=== PATIENT | male | born 1970 | race Hispanic/Latino ===

== ENCOUNTER 2024-05-24 18:23 | Inpatient (IN) | payer SELFPAY ==
[~2024-05-24] VITALS: Ht 172.7 cm; Wt 101.8 kg
[2024-05-24 18:38] VITALS: O2SAT 95
[2024-05-24 19:10] LABS: BASOPHILS # (AUTO) 0.07 K/uL (0.00-0.20); BASOPHILS % (AUTO) 0.7 % (0.0-5.0); EOSINOPHILS % (AUTO) 3.1 % (0.0-8.0); HEMATOCRIT 38.9 % (42-54); IMMATURE GRANULOCYTE ABSOLUTE 0.04 K/uL (0-1); LYMPHOCYTES # (AUTO) 1.8 K/uL (1.0-4.8); LYMPHOCYTES % (AUTO) 18.3 % (21.0-51.0); MEAN CORPUSCULAR HEMOGLOBIN 29.4 pg (27.0-33.0); MEAN CORPUSCULAR HGB CONC 35.2 g/dL (32.0-36.0); MEAN CORPUSCULAR VOLUME 83.5 fL (79-99); MONOCYTES # (AUTO) 0.9 K/uL (0.1-1.0); MONOCYTES % (AUTO) 8.7 % (3.0-13.0); NEUTROPHILS # (AUTO) 6.8 K/uL (1.8-7.7); NEUTROPHILS % (AUTO) 68.8 % (40.0-77.0); PLATELET COUNT (AUTO) 228 K/uL (130-400); RED BLOOD CELL COUNT(AUTO) 4.66 MIL/uL (4.50-6.20); RED CELL DISTRIBUTION WIDTH 12.7 % (11.0-15.5); WHITE BLOOD COUNT (AUTO) 9.8 K/uL (4.8-10.8)
[2024-05-24] MEDS: 0.9%NACL 1000ML 1,000 ML IV ONE ×2 (19:23→20:26)
[2024-05-24 19:52] LABS: ALBUMIN 3.4 g/dL (3.5-5.0); BILIRUBIN,TOTAL 0.7 mg/dL (0.2-1.0); CREATININE 1.1 mg/dL (0.5-1.3); MAGNESIUM 1.7 mg/dL (1.80-2.40); TOTAL PROTEIN, SERUM 6.5 g/dL (6.0-8.3)
[2024-05-24 20:13] LABS: COVID19 (SARS ANTIGEN RAPID) PRESUMPTIVE NEGATIVE (NEGATIVE); INFLUENZA TYPE A Negative For Type A (NEGATIVE); INFLUENZA TYPE B Negative For Type B (NEGATIVE)
[2024-05-24] MEDS: KETOROLAC 30MG VIAL (30MG/ML) IVP ONE (20:14)
[2024-05-24 20:37] LABS: APPEARANCE,URINE CLEAR (CLEAR); BILIRUBIN,URINE NEGATIVE (NEGATIVE); COLOR,URINE YELLOW (YELLOW); GLUCOSE, URINE (UA) NEGATIVE (NEGATIVE); KETONES,URINE NEGATIVE (NEGATIVE); LEUKOCYTE ESTERASE ,URINE NEGATIVE Leu/uL (NEGATIVE); NITRATE,URINE NEGATIVE (NEGATIVE); PROTEIN,URINE 30 mg/dL (NEGATIVE); UROBILINOGEN,URINE 3 mg/dL (0.2-1.0)
[2024-05-24 20:45] LABS: ADD UA MICROSCOPIC YES
[2024-05-24 20:48] LABS: BACTERIA,URINE RARE /HPF (None Seen); MUCUS,URINE RARE LPF (None Seen); OTHER CASTS, URINE 1 /LPF (None Seen); SQUAMOUS EPITHELIAL CELL,UR RARE /HPF (0-2)
[2024-05-24] MEDS ORDERED: acetaMINOPHEN 650 MG SUPPOSITORY RC PRN (21:00)
[2024-05-24] MEDS ORDERED: DOCUSATE SODIUM 100 MG CAP PO PRN (21:00)
[2024-05-24] MEDS ORDERED: hydrALAZine 20MG/ML VIAL IV PRN (21:00)
[2024-05-24] MEDS ORDERED: TEMAZEPAM 15 MG CAPSULE PO PRN (21:00)
[2024-05-24] MEDS ORDERED: ONDANSETRON 4MG INJ IVP PRN (21:00)
[2024-05-24] MEDS ORDERED: acetaMINOPHEN 325 MG TAB PO PRN (21:00)
[2024-05-24] MEDS ORDERED: LACTULOSE 20 GM/30 ML UDCUP PO PRN (21:00)
[2024-05-24] MEDS: INSULIN HUMULIN R 100 UNIT/ML 3ML SQ SCH (21:00)
[2024-05-24 21:44] LABS: AMPHET/METH SCREEN,URINE POSITIVE (NEGATIVE); BARBITURATE SCREEN, URINE NEGATIVE (NEGATIVE); BENZODIAZEPINES SCREEN,URINE NEGATIVE (NEGATIVE); CANNABINOID SCREEN,URINE POSITIVE (NEGATIVE); COCAINE SCREEN,URINE NEGATIVE (NEGATIVE); OPIATE SCREEN,URINE NEGATIVE (NEGATIVE); PHENCYCLIDINE SCREEN,URINE NEGATIVE (NEGATIVE)
[2024-05-24] MEDS ORDERED: ALBUTEROL 0.083% 2.5 MG/3 ML INH IH PRN (22:00)
[2024-05-24] MEDS ORDERED: GUAIFENESIN-DM 200/20 MG 10 ML PO PRN (22:00)
[2024-05-24] MEDS ORDERED: IpraTROPium 0.5 MG/2.5 ML INH IH PRN (22:00)
[2024-05-24] MEDS ORDERED: DEXTROSE 50%-WATER 50 ML DISP.SYRIN IV PRN (22:30)
[2024-05-24] MEDS ORDERED: POTASSIUM CHLORIDE 10% ELIXIR 20 MEQ/15 ML UDCUP PO PRN (22:30)
[2024-05-24] MEDS ORDERED: GLUCAGON 1MG KIT 1 MG ML IM PRN (22:30)
[2024-05-24] MEDS ORDERED: POTASSIUM CHLORIDE 20MEQ/100ML 100 ML IV PRN (22:30)
[2024-05-24] MEDS ORDERED: MAGNESIUM 2GM PREMIX 50ML 50 ML IV PRN (22:30)
[2024-05-24] MEDS ORDERED: KCL 20 MEQ ERTAB PO PRN (22:30)
[2024-05-24] MEDS: MAGNESIUM 2GM PREMIX 50ML 50 ML IV ONE (23:04)
[2024-05-24] MEDS: ASPIRIN 81MG CHEW TAB PO ONE (23:05)
[2024-05-24] MEDS: ATORVASTATIN 40 MG TABLET PO SCH (23:05)
[2024-05-25] VITALS (8 sets, daily range): BP systolic 95–125; BP diastolic 61–68; PULSE 51–76; RESP 18–20; O2SAT 96–98
[2024-05-25 04:45] LABS: BASOPHILS # (AUTO) 0.09 K/uL (0.00-0.20); BASOPHILS % (AUTO) 1.2 % (0.0-5.0); EOSINOPHILS # (AUTO) 0.69 K/uL (0.00-0.70); EOSINOPHILS % (AUTO) 9.5 % (0.0-8.0); HEMATOCRIT 35.4 % (42-54); IMMATURE GRANULOCYTE ABSOLUTE 0.03 K/uL (0-1); LYMPHOCYTES # (AUTO) 2.2 K/uL (1.0-4.8); MEAN CORPUSCULAR HEMOGLOBIN 29.8 pg (27.0-33.0); MEAN CORPUSCULAR VOLUME 85.1 fL (79-99); MONOCYTES # (AUTO) 0.8 K/uL (0.1-1.0); MONOCYTES % (AUTO) 10.6 % (3.0-13.0); NEUTROPHILS # (AUTO) 3.5 K/uL (1.8-7.7); NEUTROPHILS % (AUTO) 48.3 % (40.0-77.0); PLATELET COUNT (AUTO) 194 K/uL (130-400); RED BLOOD CELL COUNT(AUTO) 4.16 MIL/uL (4.50-6.20); RED CELL DISTRIBUTION WIDTH 12.7 % (11.0-15.5); WHITE BLOOD COUNT (AUTO) 7.3 K/uL (4.8-10.8)
[2024-05-25 04:53] LABS: HEMOGLOBIN A1C 5.4 % (4.0-6.0)
[2024-05-25 05:28] LABS: CREATININE 0.8 mg/dL (0.5-1.3); MAGNESIUM 2.1 mg/dL (1.80-2.40); PHOSPHORUS 3.1 mg/dL (2.5-4.9); POTASSIUM 3.9 mmol/L (3.5-5.1); THYROID STIMULATING HORMONE 1.71 uIU/mL (0.36-3.74)
[2024-05-25] MEDS: PANTOPRAZOLE 40 MG TAB DR PO SCH (09:43)
[2024-05-25] MEDS: ASPIRIN 81MG CHEW TAB PO SCH (09:44)
[2024-05-25] MEDS: ENOXAPARIN SODIUM 40 MG/0.4 ML SYRINGE SQ SCH (09:46)
[2024-05-26] VITALS: BP 105/56; PULSE 57; RESP 18
[2024-05-26 04:00] VITALS: BP 112/68; PULSE 53; RESP 18
[2024-05-26 04:35] LABS: HEMATOCRIT 36.8 % (42-54); MEAN CORPUSCULAR HEMOGLOBIN 28.9 pg (27.0-33.0); MEAN CORPUSCULAR HGB CONC 33.7 g/dL (32.0-36.0); MEAN CORPUSCULAR VOLUME 85.8 fL (79-99); RED BLOOD CELL COUNT(AUTO) 4.29 MIL/uL (4.50-6.20); RED CELL DISTRIBUTION WIDTH 12.5 % (11.0-15.5)
[2024-05-26 04:50] LABS: ALBUMIN 2.8 g/dL (3.5-5.0); BILIRUBIN,TOTAL 0.5 mg/dL (0.2-1.0); CREATININE 0.9 mg/dL (0.5-1.3); TOTAL PROTEIN, SERUM 5.6 g/dL (6.0-8.3)
[2024-05-26 06:55] VITALS: PULSE 71; RESP 18; O2SAT 97
[2024-05-26 08:00] VITALS: BP 122/48; PULSE 64; RESP 19
[2024-05-26 12:00] VITALS: BP 116/65; PULSE 59; RESP 19
[2024-05-26] MEDS ORDERED: ASPI-1005 PO (14:55)
[2024-05-26 16:00] VITALS: BP 155/98; PULSE 96; RESP 19
== END 2024-05-26 15:45 | disposition home or self-care (01) | DRG 558 ==
LOC: EDH 18:23 → EDHIP 18:24 → 4CH 05-25 00:30
PROVIDERS: ADMIT Internal Medicine; ATTEND Internal Medicine
DX: M62.82 Rhabdomyolysis (principal); N17.9 Acute kidney failure, unspecified; Z20.822 Contact with and (suspected) exposure to COVID-19; D64.9 Anemia, unspecified; R73.9 Hyperglycemia, unspecified; E66.9 Obesity, unspecified; F15.10 Other stimulant abuse, uncomplicated; R07.89 Other chest pain; E88.09 Other disorders of plasma-protein metabolism, not elsewhere classified; E78.00 Pure hypercholesterolemia, unspecified; E83.42 Hypomagnesemia; E86.0 Dehydration; F10.10 Alcohol abuse, uncomplicated; F31.9 Bipolar disorder, unspecified; I10 Essential (primary) hypertension; I25.10 Atherosclerotic heart disease of native coronary artery without angina pectoris; Z79.899 Other long term (current) drug therapy; Z86.16 Personal history of COVID-19; Z68.35 Body mass index [BMI] 35.0-35.9, adult; Z95.1 Presence of aortocoronary bypass graft
CPT/HCPCS: 36415; 70450; 71045; 80048; 80053; 80305; 81001; 82550; 82948; 83036; 83735; 83880; 84100; 84443; 84484; 85025; 85027; 87426; 87804; 93005; 93306; 96374; G0378; J1650; J1885; J3475; J7030